=== PATIENT | female | born 1995 ===

== ENCOUNTER 2024-11-22 17:50 | Inpatient (IN) | payer BC, SELFPAY ==
[2024-11-22 17:58] VITALS: BP 131/79; BMI 35.2
[2024-11-22 20:05] LABS: % Basophils 0.4 % (0-2); % Eosinophils 2.1 % (0-6); % Immature Granulocytes 0.8 % (0-0.5); % Lymphocytes 22.5 % (20.5-51.1); % Monocytes 7.5 % (1.7-9.3); % Neutrophils 66.7 % (42.2-75.2); Absolute Basophils 0.1 10^3/uL (0-0.2); Absolute Eosinophils 0.3 10^3/uL (0-0.7); Absolute Immature Granulocytes 0.1 10^3/uL (0-0.05); Absolute Neutrophils 8.9 10^3/uL (1.4-6.5); Hematocrit 34.7 % (37.0-47.0); Mean Corp Hgb Conc. 34.6 g/dL (33.0-37.0); Mean Corpuscular Hgb 30.7 pg (27.0-31.0); Mean Corpuscular Volume 88.7 fL (81.0-99.0); Mean Platelet Volume 10.6 fL (7.4-10.4); Nucleated Red Blood Cells % 0 %; Platelet Count 282 10^3/uL (130-400); Red Blood Cell Count 3.91 10^6/uL (4.20-5.40); Red Cell Dist. Width 12.8 % (11.5-14.5); White Blood Cell Count 13.4 10^3/uL (4.8-10.8)
[2024-11-22 20:50] LABS: ALT (SGPT) 21 U/L (0-35); AST (SGOT) 20 U/L (14-36); Albumin 3.7 g/dl (3.5-5.0); Alkaline Phosphatase 167 U/L (38-126); Blood Urea Nitrogen 11 mg/dl (7-17); Calcium 9.4 mg/dl (8.4-10.2); Carbon Dioxide 22 mmol/L (22-30); Chloride 102 mmol/L (98-107); Estimated Creatinine Clearance > 125 ml/min; Glucose 83 mg/dl (70-99); Potassium 4.2 mmol/L (3.5-5.1); Sodium 131 mmol/L (135-145); Total Bilirubin 0.3 mg/dl (0.2-1.3); Total Protein 6.5 g/dl (6.3-8.2); eGFR > 60.00
[2024-11-22 21:09] LABS: Protein/creatinine Ratio 0.2; Urine Protein 12 mg/dl
[2024-11-22] MEDS: PENICILLIN 110 UNITS IV (22:02)
[2024-11-22] MEDS: LR 1000 IV (22:02)
[2024-11-22] MEDS: STADOL 1 MG IV (23:22)
[2024-11-23] MEDS: PENICILLIN 55 UNITS IV ×2 (01:59→06:00)
[2024-11-23] MEDS: LR 1000 IV (02:22)
== END 2024-11-23 08:00 | disposition home or self-care (01) | DRG 833 ==
LOC: LDRP 17:50
PROVIDERS: ADMITTING PHYSICIAN Obstetrics & Gynecology
PROC: 4A1HXCZ Monitoring of Products of Conception, Cardiac Rate, External Approach (ICD-10-PCS; 2024-11-22)
DX: O47.1 False labor at or after 37 completed weeks of gestation (principal); Z3A.40 40 weeks gestation of pregnancy
CPT/HCPCS: 36415; 80053; 82570; 84156; 85025; 86850; 86900; 86901; G0378

== ENCOUNTER 2024-11-24 01:15 | Inpatient (IN) | payer BC, SELFPAY ==
[2024-11-24 01:19] VITALS: BMI 34.4
[2024-11-24 01:20] VITALS: BP 139/83
[2024-11-24] MEDS: LR 1000 IV ×2 (01:49→02:40)
[2024-11-24] MEDS: PENICILLIN 110 UNITS IV (01:49)
[2024-11-24 01:55] LABS: % Basophils 0.2 % (0-2); % Eosinophils 0.8 % (0-6); % Immature Granulocytes 0.8 % (0-0.5); % Lymphocytes 22.2 % (20.5-51.1); Absolute Eosinophils 0.1 10^3/uL (0-0.7); Absolute Immature Granulocytes 0.1 10^3/uL (0-0.05); Absolute Lymphocytes 2.9 10^3/uL (1.2-3.4); Absolute Monocytes 0.9 10^3/uL (0.1-0.6); Absolute Neutrophils 9.1 10^3/uL (1.4-6.5); Hematocrit 35.7 % (37.0-47.0); Hemoglobin 12.4 g/dL (12.0-16.0); Mean Corp Hgb Conc. 34.7 g/dL (33.0-37.0); Mean Corpuscular Hgb 30.8 pg (27.0-31.0); Mean Corpuscular Volume 88.8 fL (81.0-99.0); Mean Platelet Volume 10.4 fL (7.4-10.4); Nucleated Red Blood Cells % 0 %; Platelet Count 330 10^3/uL (130-400); Red Blood Cell Count 4.02 10^6/uL (4.20-5.40); Red Cell Dist. Width 12.9 % (11.5-14.5); White Blood Cell Count 13.1 10^3/uL (4.8-10.8)
[2024-11-24] MEDS: FENTANYL/BUPIVACAINE 100 EPIDURAL (02:21)
[2024-11-24] MEDS: SUBLIMAZE 100 MCG EPIDURAL (02:21)
[2024-11-24] MEDS: PRENATAL PLUS 1 TABLET PO (07:55)
[2024-11-24] MEDS: MOTRIN 600 MG PO (07:55)
[2024-11-24] MEDS: TYLENOL 650 MG PO (19:26)
[2024-11-25] MEDS: PRENATAL PLUS 1 TABLET PO (08:34)
[2024-11-25 11:52] LABS: Hemoglobin 11.1 g/dL (12.0-16.0)
[2024-11-26] MEDS: PRENATAL PLUS 1 TABLET PO (08:43)
[2024-11-27 16:17] LABS: Syphilis/T. pallidum Ab Reflex Negative (Negative)
== END 2024-11-26 11:58 | disposition home or self-care (01) | DRG 807 ==
LOC: LDRP 01:15
PROVIDERS: Obstetrics & Gynecology; Student in an Organized Health Care Education/Training Program; ADMITTING PHYSICIAN Obstetrics & Gynecology
PROC: 10907ZC Drainage of Amniotic Fluid, Therapeutic from Products of Conception, Via Natural or Artificial Opening (ICD-10-PCS; 2024-11-24)
PROC: 10E0XZZ Delivery of Products of Conception, External Approach (ICD-10-PCS; 2024-11-24)
DX: O99.824 Streptococcus B carrier state complicating childbirth (principal); Z37.0 Single live birth; O76 Abnormality in fetal heart rate and rhythm complicating labor and delivery; Z3A.40 40 weeks gestation of pregnancy; O77.0 Labor and delivery complicated by meconium in amniotic fluid; O69.81X0 Labor and delivery complicated by cord around neck, without compression, not applicable or unspecified
CPT/HCPCS: 88307; 85014; 85018; 85025; 86780; 86850; 86900; 86901